=== PATIENT | male | born 1955 | race Caucasian/White ===

== ENCOUNTER 2016-10-06 14:01 | Outpatient (CLI) | payer SELFPAY ==
[~2016-10-06] VITALS: Ht 182.9 cm; Wt 80.8 kg
[2016-10-06 14:21] VITALS: BP 127/80
== END 2016-10-06 15:00 | disposition home or self-care (01) ==
LOC: PREOP 14:01
PROVIDERS: ATTEND Surgery
DX: Z01.818 Encounter for other preprocedural examination (principal); Z11.2 Encounter for screening for other bacterial diseases; K40.90 Unilateral inguinal hernia, without obstruction or gangrene, not specified as recurrent
CPT/HCPCS: 87081

== ENCOUNTER 2016-10-16 06:20 | Day surgery (SDC) | payer SELFPAY ==
[~2016-10-16] VITALS: Ht 182.9 cm; Wt 80.8 kg
[2016-10-16] MEDS ORDERED: FAMOTIDINE 20MG/2ML IV (PEPCID) IV ONE (06:45)
[2016-10-16] MEDS ORDERED: ONDANSETRON 4 MG/2 ML (SDV) Z0FRAN IV ONE (06:45)
[2016-10-16] MEDS ORDERED: SCOPOLAMINE 1.5 MG (TRANSDERM-SCOP) PATCH TOP ONE (06:45)
[2016-10-16] MEDS ORDERED: ceFAZolin 2 GM/NS 50 ML IV ONE (07:15)
[2016-10-16] MEDS: LACTATED RINGERS 1,000 ML IV PRN ×2 (07:25→10:07)
[2016-10-16 07:35] VITALS: BP 131/86
[2016-10-16] MEDS ORDERED: LIDOCAINE 1% INJ 20 ML (XYLOCAINE) VIAL ONE (08:44)
[2016-10-16] MEDS ORDERED: BUPIVACAINE 0.5% 30 ML (SENSORCAINE) VIAL ONE (08:44)
--- NOTE | 2016-10-16 09:08 | Progress Note-Pre Operative ---
Pre-Operative Progress Note H&P Reviewed The H&P was reviewed, patient examined and no changes noted. Date Seen by Provider: Oct 16, 2016 Time Seen by Provider: 09:08 Date H&P Reviewed: Oct 16, 2016 Time H&P Reviewed: 09:08 Pre-Operative Diagnosis: left inguinal hernia RACHEAL DELGADO DO Oct 16, 2016 9:08 am
[2016-10-16] MEDS ORDERED: proPOfol 200 MG/20 ML (DIPRIVAN) VIAL IV ONE (09:21)
[2016-10-16] MEDS ORDERED: ONDANSETRON 4 MG/2 ML (SDV) Z0FRAN ONE (09:21)
[2016-10-16] MEDS ORDERED: LACTATED RINGERS 1,000 ML IV ONE ×2 (09:21→10:19)
[2016-10-16] MEDS ORDERED: ROCURONIUM 50 MG/5 ML (ZEMURON) VIAL IV ONE (09:21)
[2016-10-16] MEDS ORDERED: LIDOCAINE PF 2% 5 ML (XYLOCAINE) VIAL ONE (09:21)
[2016-10-16] MEDS ORDERED: fentaNYL INJECTION 100 MCG/2 ML AMP ONE (09:22)
[2016-10-16] MEDS ORDERED: MIDAZOLAM 2 MG/2 ML (VERSED) VIAL ONE (09:22)
[2016-10-16] MEDS ORDERED: SEVOFLURANE (ULTANE) 15 ML INHAL SOLN ONE (10:19)
--- NOTE | 2016-10-16 10:26 | Progress Note-Post Operative ---
Post-Operative Progess Note Surgeon (s)/Wrap Turner (s) Surgeon RACHEAL DELGADO DO Wrap Turner: Dr. Frost Pre-Operative Diagnosis left inguinal hernia Post-Operative Diagnosis direct left inguinal hernia Procedure & Operative Findings Date of Procedure 10/16/16 Procedure Performed/Findings open left inguinal hernia repair Anesthesia Type general Estimated Blood Loss Estimated blood loss (mL): minimal Specimens/Packing Specimens Removed none RACHEAL DELGADO DO Oct 16, 2016 10:26
[2016-10-16] MEDS ORDERED: PROMETHAZINE INJ 25 MG/ML (PHENERGAN) AMP IVP PRN (10:45)
[2016-10-16] MEDS ORDERED: ONDANSETRON 4 MG/2 ML (SDV) Z0FRAN IVP PRN (10:45)
[2016-10-16] MEDS ORDERED: MEPERIDINE (DEMEROL) INJ 50 MG/ML IVP PRN (10:45)
[2016-10-16] MEDS: morphine INJ 10 MG/ML 1ML (SYR OR VIAL) IVP PRN ×2 (11:00→11:05)
[2016-10-16 11:30] VITALS: BP 134/82
[2016-10-16] MEDS ORDERED: DOCU-143 PO (11:41)
[2016-10-16] MEDS ORDERED: HYDR-3812 PO (11:41)
--- NOTE | 2016-10-16 11:45 | Discharge Inst-Simple/Standard ---
Discharge Inst-Standard Patient Instructions/Follow Up Plan of Care/Instructions/FU: Follow up with Dr. Menendez in 2 weeks Apply ice to area for 15 mins and off for 10 mins for the next 24-48 hours Activity as Tolerated: No Discharge Diet: No Restrictions Other Inst to Patient Follow up Appt: Make appointment for 1 week. Instructions: No lifting greater than 10 pounds. No strenuous activity. May shower in 24 hours, no tub bath or soaking. Use incentive spirometer at home as directed. No Smoking Skin/Wound Care: May remove bandages. You need to leave the glue, it will fall off on its own. Symptoms to Report: Appetite Changes, Extremity Discoloration, Numbness/Tingling, Swelling Increased , Bleeding Excessive, Eyesight Changes, Pain Increased, Urine Color Change, Constipation(Persistent), Fever over 101 degree F, Pain/Pressure in chest, Urinating Difficulty, Cough Up/Vomit Blood, Heart Beat Irreg/Pounding, Pain/ Pressure in jaw, Vaginal Bleeding Increase, Cramps in feet or legs, Lightheadedness, Pain/Pressure in shoulder, Diarrhea(Persistent), Memory Changes Suddenly, Questions/Concerns, Weight gain consecutive days, Dizziness/ Fainting, Nausea/Vomiting, Shortness of Breath, Weight gain over 2 pounds If questions or concerns contact your physician Or seek help at emergency department. [facility] APRN Oct 16, 2016 11:45 am
[2016-10-16 12:00] VITALS: BP 121/82
[2016-10-16 12:30] VITALS: BP 124/77
[2016-10-16] MEDS ORDERED: HYDROcodone/APAP 5 MG/325 MG (LORTAB) TAB ONE (12:44)
[2016-10-16] MEDS ORDERED: HYDROcodone/APAP 5 MG/325 MG (LORTAB) TAB PO ONE (13:00)
[2016-10-16 13:25] VITALS: BP 124/77
--- NOTE | 2016-10-17 12:14 | OPERATIVE REPORT ---
PROCEDURE PHYSICIAN: RACHEAL MENENDEZ DATE OF PROCEDURE: 10/16/2016 PREOPERATIVE DIAGNOSIS: Left inguinal hernia. POSTOPERATIVE DIAGNOSIS: Left direct inguinal hernia. PROCEDURE: Open left inguinal hernia repair with mesh. SURGEON: Dr. Menendez. NETWORK SPECIALIST: Dr. Frost, to assist in retraction, dissection, and closure. ANESTHESIA: General. ESTIMATED BLOOD LOSS: Minimal. COMPLICATIONS: None. INDICATIONS: The patient is a 61-year-old male with left inguinal hernias increasing in size and causing discomfort. He understood risks and benefits of the procedure and wished to proceed with the procedure. Consent was signed on the chart. PROCEDURE: The patient was taken to the operating suite. He was prepped and draped in sterile fashion. A surgical pulses performed. The left lower abdominal incision was made and dissection was taken down to the external oblique. The external ring was then opened along with the external oblique. The cord was then dissected around. There was no indirect defect. There was a large direct defect which was able to be reduced without difficulty. This was then closed using transversalis to the shelving edge using 0 Vicryl in a [id number] fashion. The appropriate mesh was then cut to size, it was secured to Paulino's ligament using 2-0 Vicryl. The mesh was then incorporated around the spermatic cord and placed under the external oblique. It had adequate overlay and good coverage. The wound was then irrigated with copious amounts of irrigation. The external oblique was then closed using a 3-0 Vicryl in a running fashion. The subcutaneous tissues were then reapproximated using 3-0 Vicryl. Skin was then closed using 4-0 Vicryl in a running subcuticular fashion. Dermabond was placed over the incision. Sterile bandage was applied. The patient tolerated the procedure well without any complications. He was taken to the recovery room in stable condition. Job ID: [id number] Dictated Date: 10/16/2016 10:29:41 Formulator Compounder Date: 10/17/2016 12:02:08 / toro
== END 2016-10-16 13:25 | disposition home or self-care (01) ==
LOC: SDC 06:20
PROVIDERS: ATTEND Surgery
DX: K40.90 Unilateral inguinal hernia, without obstruction or gangrene, not specified as recurrent (principal)
CPT/HCPCS: 94664